=== PATIENT | female | born 1970 | race Two or more races ===

== ENCOUNTER 2025-05-21 09:35 | Emergency (ER) | payer OTHER, SELFPAY ==
[2025-05-21 09:53] VITALS: BP 149/92; PULSE 105; RESP 18; TEMP 36.6; O2SAT 98; BMI 31.1
[2025-05-21] MEDS: KETOROLAC INJ 60 MG/2 ML VIAL 30 MG IM (10:14)
--- NOTE | 2025-05-21 10:22 | PD.EDLOWEX ---
Lower Extremity Injury RME/HPI General Chief Complaint: Extremity Injury, Lower Stated Complaint: PAIN L) LEG 03/02 Source: patient Arrival date/time: 05/21/25 09:35 54-year-old female with no known medical history presents to the emergency room with a chief complaint of tenderness to her left leg x 6 days Mode of arrival: ambulatory Limitations: no limitations Related Data Previous Rx's ?Medication ?Instructions ?Recorded clindamycin HCl 300 mg capsule 300 mg PO TID #21 caps 03/11/23 valacyclovir 1 gram tablet 1,000 mg PO TID #21 tabs 03/11/23 (Valtrex) cyclobenzaprine 10 mg tablet 10 mg PO TID #14 tabs 05/21/25 ibuprofen 800 mg tablet 800 mg PO Q8H #30 tabs 05/21/25 Allergies Allergy/AdvReac Type Severity Reaction Status Date / Time No Known Allergies Allergy Verified 05/21/25 09:38 ED Exam General Limitations: Present no limitations Course Quality Measures none Orders Category Date Time Status Ketorolac Inj [Toradol Inj] Med 05/21/25 10:00 Discontinued 30 mg IM X1 ONE Vital Signs Vital signs: Vital Signs Temperature 97.8 F 05/21/25 09:53 Pulse Rate 105 H 05/21/25 09:53 Respiratory Rate 18 05/21/25 09:53 Blood Pressure 149/92 H 05/21/25 09:53 Pulse Oximetry (%) 98 05/21/25 09:53 Oxygen Delivery Method Room Air 05/21/25 09:53 Extremity Injury, Lower MDM Narrative MDM Narrative:: 54-year-old female with no known medical history presents to the emergency room with a chief complaint of tenderness to her left leg x 6 days Patient is hemodynamically stable and in no apparent distress Physical examination shows left sciatic notch tenderness with palpation. The patient denies any saddle anesthesia. Any loss of bowel or bladder function. There was no trauma there was no fall there is no twisting injury. The patient is ambulating with no complications A shot of Toradol was given and the patient was discharged. Patient was discharged and educated to follow-up with primary care provider in the next 24 to 48 hours and return to the emergency room for any evidence of worsening signs or symptoms Patient data External records reviewed:: [facility] previous records Clinical information provided by:: patient Social determinants that could affect healthcare access:: none Patient has the following chronic illnesses:: No chronic illness How is presenting disease/condition affected by chronic disease/condition?: no chronic disease Evaluation data The following diagnostics were reviewed and interpreted by me:: lab results and radiology exam(s) Lab and/or radiology exams considered but not ordered:: Labs and radiology exams considered and ordered Interpretation Summary: N/A Medications / Prescriptions Medications or Prescriptions considered but not ordered:: Medication given Medication administrations:: Medication Administration History Discontinued Medications Ketorolac Tromethamine (Ketorolac Inj 60 Mg/2 Ml Vial) 30 mg IM X1 ONE Stop: 05/21/25 10:01 Last Admin: 05/21/25 10:14 Dose: 30 mg Documented By: OA Medication given Consultations Consultation(s) initiated? (list below): No Diagnosis Extremity Injury, Lower Differential Diagnosis: other (Sciatica/lumbar back sprain) Most likely diagnosis given after review of the tests above:: Sciatica Admission Indicated Admission indicated?: not indicated Admission Request Was there a request for admission?: No Disposition Plan Disposition Plan: Discharge Discharge Attestation Discharge Attestation: The patient and all family members were given an opportunity to ask questions and understood the discharge instructions. Discharge instructions specifically effects, indications for sooner follow up or return to the emergency department, and the expected course of current diagnosis. Patient condition: Stable Discharge Plan Plan Patient Disposition: HOME (Self Care) Discharge Disposition comment: Stable Prescriptions/Referrals Prescriptions/Med Rec: New cyclobenzaprine 10 mg tablet 10 mg PO TID Qty: 14 0RF ibuprofen 800 mg tablet 800 mg PO Q8H Qty: 30 0RF No Action valacyclovir [Valtrex] 1 gram tablet 1,000 mg PO TID Qty: 21 0RF clindamycin HCl 300 mg capsule 300 mg PO TID Qty: 21 0RF Referrals: Jeancarlos Melgar MD [Primary Care Provider, Family Practice] - In 1 week Problem List Clinical Impression: Sciatica of left side Patient/Caregiver Discharge Instructions Education Materials: ED Sciatica Additional Instructions: Please follow-up with your primary care provider in the next 24 to 48 hours Medication was sent to your pharmacy please pick it up and take it as indicated If your signs and symptoms continue you will need to follow-up with your primary care provider as an MRI, physical therapy, or chiropractor may be indicated to help you with your symptoms For any evidence of worsening signs or symptoms you can always return to the emergency room immediately Print Language: Gabonese Stand Alone Forms: Harriet Award Info., Work/School Release, Patient Portal Info Letter
== END 2025-05-21 10:43 | disposition home or self-care (01) ==
PROVIDERS: Emergency Provider Nurse Practitioner Family; PCP Family Medicine
DX: M54.32 Sciatica, left side (principal)
CPT/HCPCS: 96372; 99282; J1885